=== PATIENT | female | born 1995 | race Hispanic/Latino ===

== ENCOUNTER 2017-10-10 23:32 | Emergency (ER) | payer SELFPAY ==
[~2017-10-10] VITALS: Ht 149.9 cm; Wt 60.6 kg
[~2017-10-10 23:32] MED LIST: AEROCHAMBER PLUS INH; ALLERGY EYE DRO1 DRO OU; AZITHROMYCIN250 MG PO; BENADRYL 50MG C50 MG PO; CEFDINIR300 MG PO; CIPRODEX1 ML AS; DENIES CURRENT MEDS; FLEXERIL PO; FLONASE NASAL50 MCG; FLOVENT HFA44 MCG IN; NAPROSYN500 MG PO; NASONEX50 MCG/AC NAB; ONDANSETRON4 MG PO; PROAIR HFA IN; PROVENTIL HFA IN; SINGULAIR PO; ZITHROMAX250 MG PO; ZPAK PO; [UNRECOGNIZED DRUG - OTHER] OP
[2017-10-11] MEDS ORDERED: PREDNISONE50 MG PO (00:50)
[2017-10-11] MEDS ORDERED: PROAIR HFA108 MCG/AC PO (00:50)
[2017-10-11 01:02] VITALS: BP 134/87
== END 2017-10-11 01:10 | disposition home or self-care (01) | DRG 203 ==
LOC: ED 23:32
DX: J45.901 Unspecified asthma with (acute) exacerbation (principal); R06.02 Shortness of breath

== ENCOUNTER 2017-12-10 10:31 | Emergency (ER) | payer SELFPAY ==
[~2017-12-10] VITALS: Ht 149.9 cm; Wt 60.0 kg
[~2017-12-10 10:31] MED LIST changes: +PREDNISONE50 MG PO; +PROAIR HFA108 MCG/AC PO
[2017-12-10 11:25] VITALS: BP 118/83
== END 2017-12-10 11:25 | disposition home or self-care (01) | DRG 153 ==
LOC: ED 10:31
DX: J06.9 Acute upper respiratory infection, unspecified (principal); J45.909 Unspecified asthma, uncomplicated

== ENCOUNTER 2018-09-18 02:56 | Emergency (ER) | payer SELFPAY ==
[~2018-09-18] VITALS: Ht 149.9 cm; Wt 61.0 kg
[2018-09-18] MEDS ORDERED: ZPAK PO (03:54)
[2018-09-18] MEDS ORDERED: ROBITUSSIN AC10 ML PO (03:54)
[2018-09-18] MEDS ORDERED: MEDDOSEPAK PO (03:55)
[2018-09-18 04:05] VITALS: BP 136/85
== END 2018-09-18 04:05 | disposition home or self-care (01) | DRG 153 ==
LOC: ED 02:56
DX: J06.9 Acute upper respiratory infection, unspecified (principal); R05 Cough; R09.81 Nasal congestion; R50.9 Fever, unspecified

== ENCOUNTER 2019-07-20 | Emergency (ER) | payer OTHER ==
[~2019-07-20] MED LIST changes: +MEDDOSEPAK PO; +ROBITUSSIN AC10 ML PO
== END 2019-07-20 20:50 | disposition home or self-care (01) | DRG 605 ==
DX: S90.32XA Contusion of left foot, initial encounter (principal); W20.8XXA Other cause of strike by thrown, projected or falling object, initial encounter; Y93.89 Activity, other specified; Y92.89 Other specified places as the place of occurrence of the external cause; Y99.0 Civilian activity done for income or pay

== ENCOUNTER 2020-07-18 20:58 | Emergency (ER) | payer SELFPAY ==
[~2020-07-18] VITALS: Ht 149.9 cm; Wt 63.6 kg
[2020-07-18] MEDS ORDERED: NAPROXEN500 MG PO (22:48)
[2020-07-18 23:00] VITALS: BP 135/70
== END 2020-07-18 23:00 | disposition home or self-care (01) | DRG 563 ==
LOC: ED 20:58
DX: S93.401A Sprain of unspecified ligament of right ankle, initial encounter (principal); J45.909 Unspecified asthma, uncomplicated; W10.9XXA Fall (on) (from) unspecified stairs and steps, initial encounter; Y92.009 Unspecified place in unspecified non-institutional (private) residence as the place of occurrence of the external cause

== ENCOUNTER 2021-01-26 03:36 | Emergency (ER) | payer SELFPAY ==
[~2021-01-26] VITALS: Ht 149.9 cm; Wt 61.0 kg
[~2021-01-26 03:36] MED LIST changes: +NAPROXEN500 MG PO
[2021-01-26 04:28] LABS: HEMATOCRIT 42.1 % (37.0-47.0); HEMOGLOBIN 14.2 g/dl (12.0-16.0); IMMATURE GRANULOCYTES 0.3 % (0.0-5.0); MEAN CELL VOLUME 90.3 fL CALC (80.0-100.0); MEAN CORPUSCULAR HGB 30.5 pG CALC (26.0-32.0); MEAN CORPUSCULAR HGB CONC 33.7 g/dL CAL (32.0-36.0); NEUT# 18.78 thou/uL (2.00-7.15); RED BLOOD COUNT 4.66 mill/uL (4.20-5.60); RED CELL DISTRI WIDTH 13.1 % (11.5-15.5)
[2021-01-26] MEDS ORDERED: ZITHROMAX TRI-500 MG PO (05:25)
[2021-01-26 05:45] VITALS: BP 116/60
== END 2021-01-26 05:52 | disposition home or self-care (01) | DRG 153 ==
LOC: ED 03:36
PROVIDERS: Family Medicine
DX: J02.0 Streptococcal pharyngitis (principal); J45.909 Unspecified asthma, uncomplicated; Z20.822 Contact with and (suspected) exposure to COVID-19

== ENCOUNTER 2021-07-04 19:55 | Emergency (ER) | payer BC ==
[~2021-07-04] VITALS: Ht 149.9 cm; Wt 60.0 kg
[~2021-07-04 19:55] MED LIST changes: +ZITHROMAX TRI-500 MG PO
[2021-07-04] MEDS ORDERED: ZPAK PO (21:23)
[2021-07-04] MEDS ORDERED: PROAIR HFA IN (21:23)
[2021-07-04 21:33] VITALS: BP 130/70
== END 2021-07-04 21:33 | disposition home or self-care (01) | DRG 179 ==
LOC: ED 19:55
DX: U07.1 COVID-19 (principal); J45.909 Unspecified asthma, uncomplicated

== ENCOUNTER 2022-09-07 10:44 | Emergency (ER) | payer SELFPAY ==
[2022-09-07] VITALS (9 sets, daily range): BP systolic 101–116; BP diastolic 62–78
[~2022-09-07] VITALS: Ht 149.9 cm; Wt 59.9 kg
[2022-09-07 13:16] LABS: URINE BILIRUBIN - DIPSTICK NEGATIVE (NEGATIVE); URINE BLOOD DIPSTICK NEGATIVE (NEGATIVE); URINE COLOR YELLOW; URINE GLUCOSE - DIPSTICK NEGATIVE (NEGATIVE); URINE KETONE NEGATIVE (NEGATIVE); URINE LEUK ESTERASE NEGATIVE (NEGATIVE); URINE PROTEIN - DIPSTICK NEGATIVE (NEG-TRACE); URINE UROBILINOGEN - DIPSTICK 0.2 E.U./dL (0.2)
[2022-09-07 13:25] LABS: BASO% 0.5 % (0-3); EOS% 1.8 % (0-8); HEMATOCRIT 43.7 % (37.0-47.0); HEMOGLOBIN 14.8 g/dl (12.0-16.0); IMMATURE GRANULOCYTES 0.2 % (0.0-5.0); LYMPH% 35.6 % (15-41); MEAN CELL VOLUME 88.8 fL CALC (80.0-100.0); MEAN CORPUSCULAR HGB 30.1 pG CALC (26.0-32.0); MEAN CORPUSCULAR HGB CONC 33.9 g/dL CAL (32.0-36.0); MONO% 8.9 % (2-13); NEUT# 3.51 thou/uL (2.00-7.15); RED BLOOD COUNT 4.92 mill/uL (4.20-5.60); RED CELL DISTRI WIDTH 12.5 % (11.5-15.5)
[2022-09-07 13:35] LABS: ALBUMIN 4.7 g/dL (3.2-5.0); ALKALINE PHOSPHATASE 47 u/l (38-126); ANION GAP 13 (6-22 (CALC)); BILIRUBIN, TOTAL 0.6 mg/dL (0.02-1.3); BUN 7 mg/dL (7-17); BUN/CREATININE RATIO 12 (12-20 (CALC)); CARBON DIOXIDE 23 mmol/l (22-30); CHLORIDE 106 mmol/l (95-108); CREATININE 0.6 mg/dL (0.5-1.0); GFR FOR AFR.AMER. > 60 ML/MIN (>=60 (CALC)); GFR OTHER RACES > 60 ML/MIN (>=60 (CALC)); LIPASE 60 u/l (23-300); SGOT/AST 45 u/l (14-36); SODIUM 138 mmol/l (137-146); TOTAL PROTEIN 8.2 g/dL (6.3-8.2)
[2022-09-07 13:56] LABS: URINE NITRITE - DIPSTICK NEGATIVE (Negative)
[2022-09-07] MEDS ORDERED: METHOCARBAMOL500 MG PO (16:50)
[2022-09-07] MEDS ORDERED: NAPROXEN500 MG PO (16:50)
== END 2022-09-07 17:02 | disposition home or self-care (01) | DRG 392 ==
LOC: ED 10:44
PROVIDERS: Nurse Practitioner
DX: R10.9 Unspecified abdominal pain (principal); R11.0 Nausea
CPT/HCPCS: Q9967